=== PATIENT | female | born 2000 | race Caucasian/White ===

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

== ENCOUNTER 2022-08-16 15:19 | Emergency (ER) | payer BC ==
[2022-08-16] MEDS ORDERED: Sodium Chloride 0.9% 1,000 ML IV STA ×2 (16:01→18:48)
[2022-08-16] MEDS ORDERED: Morphine 2 MG/ML SYRINGE IVPUSH STA (16:01)
[2022-08-16] MEDS ORDERED: Ondansetron 4 MG/2 ML SDV IVPUSH STA (16:01)
[2022-08-16 16:56] LABS: CARBON DIOXIDE,CO2 26.9 mmol/L (21.0-32.0); POTASSIUM,K 3.9 mmol/L (3.5-5.1)
[2022-08-16] MEDS ORDERED: Iopamidol 755 MG/ML 500 ML Multipack Bottle IVPUSH ONE ×2 (17:06→19:16)
[2022-08-16 17:14] LABS: CORONAVIRUS COVID-19 NAA NEGATIVE (NEGATIVE); INFLUENZA A NAA NEGATIVE (NEGATIVE); INFLUENZA B NAA NEGATIVE (NEGATIVE)
[2022-08-16] MEDS ORDERED: fentaNYL 50 MCG/ML SDV IVPUSH STA ×2 (17:23→20:21)
[2022-08-16] MEDS ORDERED: fentaNYL 50 MCG/ML SDV IVPUSH ONE (18:09)
[2022-08-16] MEDS ORDERED: Diatrizoate Meglumine/Diatrizoate Sodium 37% 30 ML Bottle PO ONE (19:16)
[2022-08-16 21:54] VITALS: BP 122/62; PULSE 81
== END 2022-08-16 22:21 | disposition home or self-care (01) ==
LOC: MW.ED 15:19
DX: N83.202 Unspecified ovarian cyst, left side (principal); J45.909 Unspecified asthma, uncomplicated; Z88.0 Allergy status to penicillin; Z88.1 Allergy status to other antibiotic agents; Z88.2 Allergy status to sulfonamides; Z20.822 Contact with and (suspected) exposure to COVID-19
CPT/HCPCS: 0240U; 36415; 74177; 80053; 81001; 81025; 83605; 85025; 96361; 96374; 96375; 99284; J2270; J2405; J3010; J7030; Q9963; Q9967

== ENCOUNTER 2022-08-18 18:17 | Emergency (ER) | payer BC ==
[2022-08-18] MEDS ORDERED: Sodium Chloride 0.9% 1,000 ML IV STA ×2 (18:50→20:35)
[2022-08-18 20:02] LABS: CARBON DIOXIDE,CO2 28.2 mmol/L (21.0-32.0); POTASSIUM,K 3.6 mmol/L (3.5-5.1)
[2022-08-18] MEDS ORDERED: fentaNYL 50 MCG/ML SDV IVPUSH STA (21:12)
[2022-08-18 21:51] VITALS: BP 127/77; PULSE 99
== END 2022-08-18 21:49 | disposition home or self-care (01) ==
LOC: MW.ED 18:17
DX: N83.202 Unspecified ovarian cyst, left side (principal); N76.0 Acute vaginitis; B96.89 Other specified bacterial agents as the cause of diseases classified elsewhere; Z88.0 Allergy status to penicillin; Z88.1 Allergy status to other antibiotic agents; Z88.2 Allergy status to sulfonamides
CPT/HCPCS: 36415; 76830; 80053; 81001; 85025; 87086; 87480; 87510; 87660; 96361; 96374; 99284; J3010; J7030

== ENCOUNTER 2023-01-07 11:37 | Day surgery (SDC) | payer BC ==
[~2023-01-07 11:37] MED LIST changes: -Clindamycin Phosphate in D5W 600 MG in Premix Bag 50 BAG IV ONE; -Sodium Chloride 0.9% 10 ML SDV IV PRN; +Sodium Chloride 0.9% 20 ML SDV IV PRN
[2023-01-07] MEDS ORDERED: Lidocaine 2% 5 ML SDV ONE (11:47)
[2023-01-07] MEDS ORDERED: fentaNYL 100 MCG/2 ML SDV ONE (11:47)
[2023-01-07] MEDS ORDERED: propofoL 50 ML ONE (12:06)
[2023-01-07] MEDS ORDERED: Water For Injection, Sterile 20 ML ONE (12:52)
[2023-01-07] MEDS ORDERED: Dexmedetomidine 200 MCG/2 ML SDV ONE (12:52)
[2023-01-07 14:06] VITALS: BP 109/51; PULSE 52
== END 2023-01-07 14:15 | disposition home or self-care (01) ==
LOC: MW.SDS 11:37
PROVIDERS: ATTEND Surgery
DX: K29.50 Unspecified chronic gastritis without bleeding (principal); K31.89 Other diseases of stomach and duodenum; Q43.8 Other specified congenital malformations of intestine; K52.9 Noninfective gastroenteritis and colitis, unspecified; F41.9 Anxiety disorder, unspecified; G43.909 Migraine, unspecified, not intractable, without status migrainosus; J45.909 Unspecified asthma, uncomplicated; Z98.890 Other specified postprocedural states; Z88.1 Allergy status to other antibiotic agents; Z88.0 Allergy status to penicillin; Z88.2 Allergy status to sulfonamides; Z88.8 Allergy status to other drugs, medicaments and biological substances; Z86.19 Personal history of other infectious and parasitic diseases; Z90.49 Acquired absence of other specified parts of digestive tract
CPT/HCPCS: 43239; 45380; 81025; J2704; J3010; J7120; 00813; J3490